=== PATIENT | male | born 1960 | race Caucasian/White ===

== ENCOUNTER 2018-09-07 09:06 | Inpatient (IN) | payer MEDICAID, OTHER ==
[2018-09-07] MEDS ORDERED: Cyclobenzaprine 10 MG Tab PO PRN (11:52)
[2018-09-07] MEDS: Gabapentin 300 MG Cap PO SCH ×2 (12:19→20:13)
[2018-09-07] MEDS: HYDROmorphone 2 MG Tab PO PRN ×3 (12:20→20:14)
[2018-09-07] MEDS ORDERED: Dextran 70/Hypromellose/PF Ophth Soln 0.9 ML UD EYEBOTH PRN (12:30)
[2018-09-07] MEDS: Acetaminophen/HYDROcodone 325-10 MG Tab PO SCH ×2 (12:32→18:09)
--- NOTE | 2018-09-07 15:31 | PCM.HP ---
H&P History of Present Illness - General Date of Service: 09/07/18 Admit Problem/Dx: Admission Diagnosis/Problem Admission Diagnosis/Problem Total replacement of hip Source of Information: Patient History Limitations: Reports: No Limitations - History of Present Illness Initial Comments - Free Text/Narative: 58-year-old male admitted to [facility] 3 days status post left hip replacement. He has a history of A. Fib with RVR, obesity, diabetes type 2, and diastolic heart failure. He has a history of osteoarthritis in the left hip with chronic pain for several years. He had been on chronic narcotics but got off after a back surgery but restarted due to the significant hip pain. Previously had a right hip replacement in 2014. Pain control has been difficult causing limited mobility. After changing PRN medication to Dilaudid pain control was better. At discharge patient ambulated 60 feet with a front-wheeled walker.Post- operatively patient was hypotensive, metoprolol was held. He became tachycardic and placed back on metoprolol. Patient denies palpitations. First dressing change was today, there is a small blistered area on the proximal portion of the incision, no drainage. He has not had a bowel movement since admission. He denies cramping or constipation. Onset of Symptoms: Reports: Gradual Duration of Symptoms: Reports: Chronic Location: Reports: Lower Extremity, Left Quality: Reports: Ache Severity: Moderate Improves with: Reports: Medication, Movement, Rest Worsens with: Reports: Immobilization Associated Symptoms: Reports: No Other Symptoms Left Hip Pain Score (Numeric/FACES): 7 - Related Data Allergies/Adverse Reactions: Allergies Allergy/AdvReac Type Severity Reaction Status Date / Time aspartame Allergy Swelling Verified 06/18/15 06:22 hydrochlorothiazide Allergy Itching Verified 06/18/15 06:22 tramadol Allergy Hives Verified 09/07/18 15:34 propoxyphene HCl AdvReac Bleeding Verified 06/18/15 06:22 [From Darvon] simvastatin AdvReac Muscle Verified 06/18/15 06:22 Aches Home Medications: Home Meds Cyanocobalamin (Vitamin B12) [Vitamin B12] 1,000 mcg SL DAILY 06/06/14 [History] Cyclobenzaprine [Flexeril] 10 mg PO TID PRN 06/06/14 [History] metFORMIN [Glucophage] 1,000 mg PO DAILY 06/06/14 [History] Calcium Carbonate 1 tab PO DAILY 06/25/14 [History] Cranberry 1 cap PO DAILY 06/25/14 [History] Enalapril [Vasotec] 10 mg PO DAILY 06/25/14 [History] Furosemide [Lasix] 1 tab PO BID 06/25/14 [History] Levothyroxine Sodium [Synthroid] 25 mcg PO ACBRK 06/25/14 [History] Metoprolol Tartrate [Lopressor] 100 mg PO BID 06/25/14 [History] Multivit-Min/FA/Lycopene/Lut [Centrum Silver] 1 tab PO DAILY 06/25/14 [History] Pantoprazole [Protonix] 40 mg PO DAILY 06/25/14 [History] atorvaSTATin [Lipitor] 1 tab PO DAILY 06/25/14 [History] Aspirin [Halfprin] 162 mg PO DAILY 06/15/15 [History] Gabapentin [Neurontin] 300 mg PO TID 06/15/15 [History] Hydrocodone/Acetaminophen [Hydrocodon-Acetaminophen 5-325] 10 - 325 each PO Q6H 06/15/15 [History] Allopurinol [Zyloprim] 300 mg PO DAILY 09/07/18 [History] Apixaban [Eliquis] 2.5 mg PO BID 09/07/18 [History] Dextran 70/Hypromellose [Artificial Tears] 1 drop EYEBOTH Q4HR PRN 09/07/18 [ History] HYDROmorphone [Dilaudid] 2 mg PO Q4H PRN 09/07/18 [History] HYDROmorphone [Dilaudid] 4 mg PO Q4H PRN 09/07/18 [History] Liraglutide [Victoza 3-Zev] 1.8 mg SUBCUT DAILY 09/07/18 [History] Magnesium Oxide 400 mg PO DAILY 09/07/18 [History] Potassium Phosphate,Monobasic [K-Phos Original] 500 mg PO DAILY 09/07/18 [ History] Past Medical History - Past Health History Medical/Surgical History: Denies Medical/Surgical History Cardiovascular History: Reports: Afib, Heart Failure, Heart Murmur Other Cardiovascular History: Hypertryglyceridemia. Afib with RVR Respiratory History: Reports: Sleep Apnea Other Genitourinary History: Overactive bladder Musculoskeletal History: Reports: Amputation, Gout, Osteoarthritis Other Musculoskeletal History: Spinal stenosis. Acromioclavicular joint injury. Right hip pain. heterotropic ossification of bone. Achilles tendon rupture. Left hip replacement. Enthesopathy of hip region Other Neuro History: Trigeminal neuralgia Endocrine/Metabolic History: Reports: Diabetes, Type II Other Hematologic History: B12 deficiency - Infectious Disease History Infectious Disease History: Reports: Chicken Pox - Past Surgical History GI Surgical History: Reports: Appendectomy Musculoskeletal Surgical History: Reports: Hip Replacement Other Musculoskeletal Surgeries/Procedures:: Toe amputation. finger amputation traumatic. Back surgery. Carpal tunnel syndrome Social & Family History - Family History Endocrine/Metabolic: Reports: Diabetes, type II - Tobacco Use Smoking Status *Q: Never Smoker Second Hand Smoke Exposure: No - Caffeine Use Caffeine Use: Reports: Coffee, Soda - Recreational Drug Use Recreational Drug Use: No H&P Review of Systems - Review of Systems: Review Of Systems: See Below General: Reports: No Symptoms HEENT: Reports: Glasses Pulmonary: Reports: No Symptoms Cardiovascular: Reports: No Symptoms Gastrointestinal: Reports: No Symptoms Genitourinary: Reports: No Symptoms Musculoskeletal: Reports: Joint Pain Skin: Reports: Other (left hip incision) Psychiatric: Reports: No Symptoms Neurological: Reports: No Symptoms Hematologic/Lymphatic: Reports: No Symptoms Immunologic: Reports: No Symptoms Exam - Exam Exam: See Below - Vital Signs Vital Signs: Last Vital Signs Temp 97.5 F 09/07/18 11:13 Pulse 83 09/07/18 11:13 Resp 18 09/07/18 11:13 BP 129/59 L 09/07/18 11:13 Pulse Ox 97 09/07/18 11:13 Weight: 129.274 kg - Exam General: Alert, Oriented HEENT: Conjunctiva Clear, Mucosa Moist & [place], Normal Nasal Septum, Pupils Equal , Pupils Reactive, Glasses Neck: Supple, Trachea Midline Lungs: Clear to Auscultation, Normal Respiratory Effort Cardiovascular: Regular Rate, Regular Rhythm, Diastolic Murmur GI/Abdominal Exam: Normal Bowel Sounds, Soft, Non-Tender, No Distention, No Mass (Male) Exam: Normal Inspection Rectal (Males) Exam: Normal Exam Back Exam: Normal Inspection Extremities: No Pedal Edema, Normal Capillary Refill, Limited Range of Motion, Other (left hip incisional pain, decreased range of motion) Peripheral Pulses: 2+: Radial (L), Radial (R), Posterior Tibial (L), Posterior Tibial (R), Dorsalis Pedis (L), Dorsalis Pedis (R) Skin: Warm, Dry, Incision Neurological: Cranial Nerves Intact, Reflexes Equal Bilateral, Sensation Intact , Abnormal Gait Neuro Extensive - Mental Status: Alert, Oriented x3, Normal Mood/Affect, Normal Cognition, Memory Intact Neuro Extensive - Motor, Sensory, Reflexes: CN II-XII Intact, Normal Reflexes Psychiatric: Alert, Normal Affect, Normal Mood *Q Meaningful Use (ADM) - VTE Risk Assess *Q Each Risk Factor Represents 1 Point: Age 41 - 59 years, Obesity ( BMI > 25 kg/m2 ) Total Score 1 Point Risk Factors: 2 Each Risk Factor Represents 2 Points: None Total Score 2 Point Risk Factors: 0 Each Risk Factor Represents 3 Points: None Total Score 3 Point Risk Factors: 0 Each Risk Factor Represents 5 Points: Elective Major Lower Extremity Arthroplasty Total Score 5 Point Risk Factors: 5 Venous Thromboembolism Risk Factor Score *Q: 7 - Problem List (1) Hip joint replacement status SNOMED Code(s): 636950572, 850779135, 492675514, 344374711 ICD Code: Z96.649 - PRESENCE OF UNSPECIFIED ARTIFICIAL HIP JOINT Status: Acute Priority: Medium Current Visit: Yes Qualifiers: Laterality: left Qualified Code(s): Z96.642 - Presence of left artificial hip joint (2) Diabetes SNOMED Code(s): 00024224 ICD Code: E11.9 - TYPE 2 DIABETES MELLITUS WITHOUT COMPLICATIONS Status: Chronic Priority: Low Current Visit: Yes Qualifiers: Diabetes mellitus type: type 2 Diabetes mellitus nursing home insulin use: with nursing home use Diabetes mellitus complication status: with unspecified complications Qualified Code(s): E11.8 - Type 2 diabetes mellitus with unspecified complications; Z79.4 - care home (current) use of insulin (3) Osteoarthritis SNOMED Code(s): 409907174 ICD Code: M19.90 - UNSPECIFIED OSTEOARTHRITIS, UNSPECIFIED SITE Status: Chronic Priority: Low Current Visit: Yes Onset Date: Unknown Qualifiers: Osteoarthritis location: multiple joints Osteoarthritis type: primary Qualified Code(s): M15.0 - Primary generalized (osteo)arthritis (4) Hypothyroidism SNOMED Code(s): 14540017 ICD Code: E03.9 - HYPOTHYROIDISM, UNSPECIFIED Status: Chronic Priority: Low Current Visit: Yes Onset Date: Unknown Qualifiers: Hypothyroidism type: unspecified Qualified Code(s): E03.9 - Hypothyroidism , unspecified (5) Obesity SNOMED Code(s): 462634842, 667624862 ICD Code: E66.9 - OBESITY, UNSPECIFIED Status: Chronic Priority: Low Current Visit: Yes Onset Date: Unknown Qualifiers: Obesity type: unspecified obesity type Obesity classification: adult class 3 (BMI >= 40) Body mass index: BMI 40.0-44.9 (6) Heart murmur SNOMED Code(s): 55588618 ICD Code: R01.1 - CARDIAC MURMUR, UNSPECIFIED Status: Chronic Priority: Low Current Visit: Yes Onset Date: Unknown (7) Lumbar stenosis SNOMED Code(s): 81774636 ICD Code: M48.061 - SPINAL STENOSIS, LUMBAR REGION WITHOUT NEUROGENIC SANDI Status: Chronic Priority: Low Current Visit: Yes Onset Date: Unknown Qualifiers: Neurogenic claudication status: with neurogenic claudication Qualified Code (s): M48.062 - Spinal stenosis, lumbar region with neurogenic claudication (8) Diastolic CHF SNOMED Code(s): 806412124, 873870710 ICD Code: I50.30 - UNSPECIFIED DIASTOLIC (CONGESTIVE) HEART FAILURE Status : Chronic Priority: Low Current Visit: Yes Onset Date: Unknown Qualifiers: Heart failure chronicity: chronic Qualified Code(s): I50.32 - Chronic diastolic (congestive) heart failure (9) GERD (gastroesophageal reflux disease) SNOMED Code(s): 904194072 ICD Code: K21.9 - GASTRO-ESOPHAGEAL REFLUX DISEASE WITHOUT ESOPHAGITIS Status: Chronic Priority: Low Current Visit: Yes Onset Date: Unknown Qualifiers: Esophagitis presence: esophagitis presence not specified Qualified Code(s) : K21.9 - Gastro-esophageal reflux disease without esophagitis (10) Sleep apnea SNOMED Code(s): 00430568 ICD Code: G47.30 - SLEEP APNEA, UNSPECIFIED Status: Chronic Priority: Low Current Visit: Yes Onset Date: Unknown Qualifiers: Sleep apnea type: obstructive Qualified Code(s): G47.33 - Obstructive sleep apnea (adult) (pediatric) (11) Hypertension SNOMED Code(s): 03217378 ICD Code: I10 - ESSENTIAL (PRIMARY) HYPERTENSION Status: Chronic Priority : Low Current Visit: Yes Onset Date: Unknown Qualifiers: Hypertension type: essential hypertension Qualified Code(s): I10 - Essential (primary) hypertension (12) Hypertriglyceridemia SNOMED Code(s): 597434318 ICD Code: E78.1 - PURE HYPERGLYCERIDEMIA Status: Chronic Priority: Low Current Visit: Yes Onset Date: Unknown Problem List Initiated/Reviewed/Updated: Yes Orders Last 24hrs: Active Orders 24 hr Category Date Time Status Admission Status [Patient Status] [ADT] Routine ADT 09/07/18 10:58 Active Accu Check [Blood Glucose Check, Bedside] [RC] 07,17 Care 09/07/18 11:55 Active Antiembolic Devices [RC] , Care 09/07/18 11:01 Active Communication Order [RC] , Care 09/07/18 11:03 Active Communication Order [RC] 09 Care 09/12/18 09:00 Active May Shower [RC] Tu@08 Care 09/07/18 11:02 Active OT Evaluation and Treatment [CONS] Routine Cons 09/07/18 11:01 Active PT Evaluation and Treatment [CONS] Routine Cons 09/07/18 11:01 Active ADA Diabetic [[place] [employer] Diet] [DIET Diet 09/07/18 Lunch Active ] Acetaminophen/HYDROcodone [Benedict 325-10 MG] Med 09/07/18 12:00 Active 1 tab PO Q6H Allopurinol [Zyloprim] Med 09/08/18 08:00 Active 300 mg PO DAILY Apixaban [Eliquis] Med 09/07/18 20:00 Active 2.5 mg PO BID Aspirin [Halfprin] Med 09/08/18 08:00 Active 162 mg PO DAILY Calcium Carbonate/Vitamin D3 [Calcium Carbonate/Vitamin Med 09/08/18 08:00 Active D 1250 MG-200 Unit] 1 tab PO DAILY Cranberry Med 09/08/18 08:00 Active 500 mg PO DAILY Cyanocobalamin (Vitamin B12) [Vitamin B12] Med 09/08/18 08:00 Active 1,000 mcg SL DAILY Cyclobenzaprine [Flexeril] Med 09/07/18 11:52 Active 10 mg PO TID PRN Dextran 70/Hypromellose/PF [Tears Naturale Free] Med 09/07/18 12:30 Active 0 each EYEBOTH Q4H PRN Docusate Sodium/Sennosides [Senna Plus] Med 09/07/18 13:00 Active 1 tab PO BID Enalapril [Vasotec] Med 09/08/18 08:00 Active 10 mg PO DAILY Furosemide [Lasix] Med 09/07/18 16:00 Active 40 mg PO BIDDIURETIC Gabapentin [Neurontin] Med 09/07/18 12:00 Active 300 mg PO TID HYDROmorphone [Dilaudid] Med 09/07/18 11:52 Active 2 mg PO Q4H PRN HYDROmorphone [Dilaudid] Med 09/07/18 11:52 Active 4 mg PO Q4H PRN Levothyroxine Med 09/08/18 07:00 Active 25 mcg PO ACBRK Liraglutide [Victoza] Med 09/08/18 08:00 Pending 1.8 mg SUBCUT DAILY Magnesium Oxide Med 09/08/18 08:00 Active 400 mg PO DAILY Metoprolol Tartrate [Lopressor] Med 09/07/18 20:00 Active 100 mg PO BID Multivitamins w-Iron/Ca/FA/Min [Thera M Plus] Med 09/08/18 08:00 Active 1 tab PO DAILY Pantoprazole [ProTONIX] Med 09/08/18 08:00 Active 40 mg PO DAILY Potassium Phosphate,Monobasic [K-Phos Original] Med 09/08/18 08:00 Pending 500 mg PO DAILY atorvaSTATin [Lipitor] Med 09/08/18 08:00 Active 40 mg PO DAILY metFORMIN [Glucophage] Med 09/08/18 08:00 Active 1,000 mg PO DAILY MELISSA Hose [Antiembolic Hose] [OM.PC] Routine Oth 09/07/18 11:01 Ordered Weight bearing status [OM.PC] Routine Oth 09/07/18 11:01 Active Code Status [Resuscitation Status] Routine Resus Stat 09/07/18 11:02 Ordered Medication Orders Hydrocodone Bitart/Acetaminophen (Benedict 325-10 Mg) 1 tab PO Q6H TOYA Stop: 09/09/18 23:59 Last Admin: 09/07/18 12:32 Dose: 1 tab Allopurinol (Zyloprim) 300 mg PO DAILY TOYA Apixaban (Eliquis) 2.5 mg PO BID TOYA Artificial Tears (Tears Naturale Free) 0 each EYEBOTH Q4H PRN PRN Reason: dry eyes Aspirin (Halfprin) 162 mg PO DAILY [facility] Atorvastatin Calcium (Lipitor) 40 mg PO DAILY [facility] Calcium Carbonate (Calcium Carbonate/Vitamin D 1250 Mg-200 Unit) 1 tab PO DAILY [facility] Cranberry (Cranberry) 500 mg PO DAILY [facility] Cyanocobalamin (Vitamin B12) 1,000 mcg SL DAILY [facility] Cyclobenzaprine HCl (Flexeril) 10 mg PO TID PRN PRN Reason: muscle spasms Enalapril Maleate (Vasotec) 10 mg PO DAILY [facility] Furosemide (Lasix) 40 mg PO BIDDIURETIC [facility] Gabapentin (Neurontin) 300 mg PO TID [facility] Last Admin: 09/07/18 12:19 Dose: 300 mg Hydromorphone HCl (Dilaudid) 2 mg PO Q4H PRN PRN Reason: Pain (moderate 4-6) Hydromorphone HCl (Dilaudid) 4 mg PO Q4H PRN PRN Reason: Pain (severe 7-10) Last Admin: 09/07/18 12:20 Dose: 4 mg Levothyroxine Sodium (Levothyroxine) 25 mcg PO ACBRK [facility] Magnesium Oxide (Magnesium Oxide) 400 mg PO DAILY [facility] Metformin HCl (Glucophage) 1,000 mg PO DAILY [facility] Metoprolol Tartrate (Lopressor) 100 mg PO BID [facility] Multivitamins/Minerals (Thera M Plus) 1 tab PO DAILY [facility] Non-Formulary Medication (Liraglutide [Victoza]) 1.8 mg SUBCUT DAILY [facility] Non-Formulary Medication (Potassium Phosphate,Monobasic [K-Phos Original]) 500 mg PO DAILY [facility] Pantoprazole Sodium (Protonix) 40 mg PO DAILY [facility] Senna/Docusate Sodium (Senna Plus) 1 tab PO BID [facility] Assessment/Plan Comment:: 1. PT/OT ordered 2. Added Senna-S to prevent constipation while on narcotics 3. On Eliquis for DVT prophylaxis 4. Once daily accu-checks 5. Schedule pain medications for 48 hours. 6. Continue home meds likely home next week may do labs prior to d/c 7. MELISSA daley
[2018-09-07] MEDS: Furosemide 40 MG Tab PO SCH (16:10)
[2018-09-07] MEDS: Metoprolol Tartrate 50 MG Tab PO SCH (20:12)
[2018-09-07] MEDS: Apixaban 2.5 MG Tab PO SCH (20:13)
[2018-09-08] MEDS: Acetaminophen/HYDROcodone 325-10 MG Tab PO SCH ×4 (00:05→17:12)
[2018-09-08] MEDS: HYDROmorphone 2 MG Tab PO PRN ×4 (04:39→20:01)
[2018-09-08] MEDS: Levothyroxine 25 MCG Tab PO SCH (06:01)
[2018-09-08] MEDS: Apixaban 2.5 MG Tab PO SCH ×2 (08:03→20:00)
[2018-09-08] MEDS: Magnesium Oxide 400 MG Tab PO SCH (08:03)
[2018-09-08] MEDS: Metoprolol Tartrate 50 MG Tab PO SCH ×2 (08:03→20:02)
[2018-09-08] MEDS: atorvaSTATin 40 MG Tab PO SCH (08:03)
[2018-09-08] MEDS: Calcium Carbonate/Vitamin D3 1250 MG-200 Unit Tab PO SCH (08:05)
[2018-09-08] MEDS: metFORMIN 500 MG Tab PO SCH (08:05)
[2018-09-08] MEDS: Cranberry 500 MG Cap PO SCH (08:05)
[2018-09-08] MEDS: Multivitamins with Iron/Calcium/Folic Acid/Minerals Tab PO SCH (08:06)
[2018-09-08] MEDS: Aspirin 81 MG Tab.EC PO SCH (08:06)
[2018-09-08] MEDS: Allopurinol 300 MG Tab PO SCH (08:06)
[2018-09-08] MEDS: Gabapentin 300 MG Cap PO SCH ×3 (08:06→20:00)
[2018-09-08] MEDS: Pantoprazole 40 MG Tab.CR PO SCH (08:06)
[2018-09-08] MEDS: POTASSIUM GLUCONATE 550 MG PO SCH (08:07)
[2018-09-08] MEDS: Furosemide 40 MG Tab PO SCH ×2 (08:07→17:12)
[2018-09-08] MEDS: Cyanocobalamin (Vitamin B12) 1,000 MCG Tab SL SCH (08:07)
[2018-09-08] MEDS: VICTOZA 18 MG/3 ML SUBCUT SCH (08:08)
[2018-09-09] MEDS: Acetaminophen/HYDROcodone 325-10 MG Tab PO SCH ×4 (00:07→17:47)
[2018-09-09] MEDS: HYDROmorphone 2 MG Tab PO PRN ×4 (02:56→20:28)
[2018-09-09] MEDS: Levothyroxine 25 MCG Tab PO SCH (06:09)
[2018-09-09] MEDS: Cyanocobalamin (Vitamin B12) 1,000 MCG Tab SL SCH (08:37)
[2018-09-09] MEDS: Metoprolol Tartrate 50 MG Tab PO SCH ×2 (08:38→20:23)
[2018-09-09] MEDS: Aspirin 81 MG Tab.EC PO SCH (08:38)
[2018-09-09] MEDS: Cranberry 500 MG Cap PO SCH (08:39)
[2018-09-09] MEDS: Furosemide 40 MG Tab PO SCH ×2 (08:39→15:37)
[2018-09-09] MEDS: Allopurinol 300 MG Tab PO SCH (08:39)
[2018-09-09] MEDS: Pantoprazole 40 MG Tab.CR PO SCH (08:39)
[2018-09-09] MEDS: Gabapentin 300 MG Cap PO SCH ×3 (08:39→20:24)
[2018-09-09] MEDS: Calcium Carbonate/Vitamin D3 1250 MG-200 Unit Tab PO SCH (08:39)
[2018-09-09] MEDS: Magnesium Oxide 400 MG Tab PO SCH (08:39)
[2018-09-09] MEDS: Multivitamins with Iron/Calcium/Folic Acid/Minerals Tab PO SCH (08:40)
[2018-09-09] MEDS: metFORMIN 500 MG Tab PO SCH (08:40)
[2018-09-09] MEDS: atorvaSTATin 40 MG Tab PO SCH (08:40)
[2018-09-09] MEDS: Apixaban 2.5 MG Tab PO SCH ×2 (08:40→20:23)
[2018-09-09] MEDS: POTASSIUM GLUCONATE 550 MG PO SCH (08:41)
[2018-09-09] MEDS: VICTOZA 18 MG/3 ML SUBCUT SCH (08:41)
[2018-09-10] MEDS: Acetaminophen/HYDROcodone 325-10 MG Tab PO SCH ×4 (00:24→18:13)
[2018-09-10] MEDS: HYDROmorphone 2 MG Tab PO PRN ×4 (02:52→21:06)
[2018-09-10] MEDS: Levothyroxine 25 MCG Tab PO SCH (06:01)
[2018-09-10] MEDS: Furosemide 40 MG Tab PO SCH ×2 (08:00→15:19)
[2018-09-10] MEDS: Gabapentin 300 MG Cap PO SCH ×3 (08:00→19:30)
[2018-09-10] MEDS: Allopurinol 300 MG Tab PO SCH (08:00)
[2018-09-10] MEDS: Calcium Carbonate/Vitamin D3 1250 MG-200 Unit Tab PO SCH (08:00)
[2018-09-10] MEDS: Aspirin 81 MG Tab.EC PO SCH (08:00)
[2018-09-10] MEDS: Cyanocobalamin (Vitamin B12) 1,000 MCG Tab SL SCH (08:00)
[2018-09-10] MEDS: Apixaban 2.5 MG Tab PO SCH ×2 (08:00→19:30)
[2018-09-10] MEDS: Multivitamins with Iron/Calcium/Folic Acid/Minerals Tab PO SCH (08:00)
[2018-09-10] MEDS: Cranberry 500 MG Cap PO SCH (08:00)
[2018-09-10] MEDS: Magnesium Oxide 400 MG Tab PO SCH (08:00)
[2018-09-10] MEDS: atorvaSTATin 40 MG Tab PO SCH (08:00)
[2018-09-10] MEDS: metFORMIN 500 MG Tab PO SCH (08:01)
[2018-09-10] MEDS: Metoprolol Tartrate 50 MG Tab PO SCH ×2 (08:01→19:30)
[2018-09-10] MEDS: Pantoprazole 40 MG Tab.CR PO SCH (08:01)
[2018-09-10] MEDS: POTASSIUM GLUCONATE 550 MG PO SCH (08:02)
[2018-09-10] MEDS: VICTOZA 18 MG/3 ML SUBCUT SCH (08:02)
[2018-09-11] MEDS: Acetaminophen/HYDROcodone 325-10 MG Tab PO SCH ×4 (00:06→18:11)
[2018-09-11] MEDS: HYDROmorphone 2 MG Tab PO PRN ×4 (03:36→22:00)
[2018-09-11] MEDS: Levothyroxine 25 MCG Tab PO SCH (06:29)
[2018-09-11] MEDS: VICTOZA 18 MG/3 ML SUBCUT SCH (08:04)
[2018-09-11] MEDS: Metoprolol Tartrate 50 MG Tab PO SCH ×2 (08:05→19:35)
[2018-09-11] MEDS: POTASSIUM GLUCONATE 550 MG PO SCH (08:05)
[2018-09-11] MEDS: Gabapentin 300 MG Cap PO SCH ×3 (08:06→19:35)
[2018-09-11] MEDS: Cranberry 500 MG Cap PO SCH (08:06)
[2018-09-11] MEDS: Allopurinol 300 MG Tab PO SCH (08:06)
[2018-09-11] MEDS: Cyanocobalamin (Vitamin B12) 1,000 MCG Tab SL SCH (08:06)
[2018-09-11] MEDS: Multivitamins with Iron/Calcium/Folic Acid/Minerals Tab PO SCH (08:06)
[2018-09-11] MEDS: Furosemide 40 MG Tab PO SCH ×2 (08:06→16:08)
[2018-09-11] MEDS: metFORMIN 500 MG Tab PO SCH (08:06)
[2018-09-11] MEDS: atorvaSTATin 40 MG Tab PO SCH (08:06)
[2018-09-11] MEDS: Aspirin 81 MG Tab.EC PO SCH (08:06)
[2018-09-11] MEDS: Calcium Carbonate/Vitamin D3 1250 MG-200 Unit Tab PO SCH (08:06)
[2018-09-11] MEDS: Pantoprazole 40 MG Tab.CR PO SCH (08:07)
[2018-09-11] MEDS: Apixaban 2.5 MG Tab PO SCH ×2 (08:07→19:35)
[2018-09-11] MEDS: Magnesium Oxide 400 MG Tab PO SCH (08:07)
[2018-09-12] MEDS: Acetaminophen/HYDROcodone 325-10 MG Tab PO SCH ×4 (00:25→17:54)
[2018-09-12] MEDS: Levothyroxine 25 MCG Tab PO SCH (06:19)
[2018-09-12] MEDS: Magnesium Oxide 400 MG Tab PO SCH (07:36)
[2018-09-12] MEDS: Cyanocobalamin (Vitamin B12) 1,000 MCG Tab SL SCH (07:36)
[2018-09-12] MEDS: Calcium Carbonate/Vitamin D3 1250 MG-200 Unit Tab PO SCH (07:36)
[2018-09-12] MEDS: Aspirin 81 MG Tab.EC PO SCH (07:37)
[2018-09-12] MEDS: Metoprolol Tartrate 50 MG Tab PO SCH ×2 (07:37→19:47)
[2018-09-12] MEDS: Multivitamins with Iron/Calcium/Folic Acid/Minerals Tab PO SCH (07:39)
[2018-09-12] MEDS: Pantoprazole 40 MG Tab.CR PO SCH (07:39)
[2018-09-12] MEDS: Cranberry 500 MG Cap PO SCH (07:39)
[2018-09-12] MEDS: Allopurinol 300 MG Tab PO SCH (07:39)
[2018-09-12] MEDS: metFORMIN 500 MG Tab PO SCH (07:39)
[2018-09-12] MEDS: atorvaSTATin 40 MG Tab PO SCH (07:40)
[2018-09-12] MEDS: Gabapentin 300 MG Cap PO SCH ×3 (07:40→19:47)
[2018-09-12] MEDS: Apixaban 2.5 MG Tab PO SCH ×2 (07:40→19:47)
[2018-09-12] MEDS: Furosemide 40 MG Tab PO SCH ×2 (07:40→17:05)
[2018-09-12] MEDS: VICTOZA 18 MG/3 ML SUBCUT SCH (08:51)
[2018-09-12] MEDS: POTASSIUM GLUCONATE 550 MG PO SCH (08:54)
[2018-09-12] MEDS: HYDROmorphone 2 MG Tab PO PRN (10:10)
[2018-09-13] MEDS: Acetaminophen/HYDROcodone 325-10 MG Tab PO SCH ×3 (00:17→11:58)
[2018-09-13] MEDS: HYDROmorphone 2 MG Tab PO PRN (03:47)
[2018-09-13 06:35] VITALS: BP 113/64
[2018-09-13] MEDS: Levothyroxine 25 MCG Tab PO SCH (06:39)
[2018-09-13] MEDS: Metoprolol Tartrate 50 MG Tab PO SCH (07:57)
[2018-09-13] MEDS: metFORMIN 500 MG Tab PO SCH (07:57)
[2018-09-13] MEDS: Calcium Carbonate/Vitamin D3 1250 MG-200 Unit Tab PO SCH (07:57)
[2018-09-13] MEDS: Apixaban 2.5 MG Tab PO SCH (07:57)
[2018-09-13] MEDS: Allopurinol 300 MG Tab PO SCH (07:57)
[2018-09-13] MEDS: Multivitamins with Iron/Calcium/Folic Acid/Minerals Tab PO SCH (07:57)
[2018-09-13] MEDS: atorvaSTATin 40 MG Tab PO SCH (07:58)
[2018-09-13] MEDS: Aspirin 81 MG Tab.EC PO SCH (07:58)
[2018-09-13] MEDS: Gabapentin 300 MG Cap PO SCH ×2 (07:58→11:58)
[2018-09-13] MEDS: Cyanocobalamin (Vitamin B12) 1,000 MCG Tab SL SCH (07:58)
[2018-09-13] MEDS: Furosemide 40 MG Tab PO SCH ×2 (07:58→15:44)
[2018-09-13] MEDS: Pantoprazole 40 MG Tab.CR PO SCH (07:58)
[2018-09-13] MEDS: Cranberry 500 MG Cap PO SCH (07:59)
[2018-09-13] MEDS: Magnesium Oxide 400 MG Tab PO SCH (07:59)
[2018-09-13] MEDS: POTASSIUM GLUCONATE 550 MG PO SCH (07:59)
[2018-09-13] MEDS: VICTOZA 18 MG/3 ML SUBCUT SCH (07:59)
--- NOTE | 2018-09-13 23:43 | DISCH ---
PRIMARY DISCHARGE DIAGNOSES: 1. A left hip replacement due to painful osteoarthritis. 2. Morbid obesity. 3. Type 2 diabetes with well-controlled blood sugars. 4. History of gout. 5. Hypertriglyceridemia. 6. Hypothyroidism. 7. Previous back surgeries. 8. Essential hypertension. 9. Previous paroxysmal atrial fibrillation. 10.Previous foot amputations, but prior to him getting diabetes. 11.Overactive bladder. REASON FOR ADMISSION: On the date of admission, this 58-year-old male underwent a planned left hip replacement on the by Dr. Saul. He had significant postoperative pain and therefore was having some difficulty mobilizing. He did have some tachycardia due to holding his metoprolol for hypotension. However, he did not have any reported AFib, and that resolved. He was placed on scheduled hydrocodone 10 mg 4 times a day as he had previously taken hydrocodone off and on for the last couple of years due to his chronic back problems and also having right hip surgery in the past. He was getting p.r.n. Dilaudid for breakthrough pain and he did use a dose during the night. Otherwise, was only using this 1-2 times a day, and discussion had already been made with the patient that we would send him home on only hydrocodone. He was also placed on Eliquis to complete a full month course to prevent DVTs. He had a new script updated for the next 25 days of treatment and will pick that up at the pharmacy. He had no calf swelling or pain. He had no trouble with breathing. He was having bowel movements. He was up. He was working with therapies and doing quite well during his stay. No lab other than blood sugars was done here as his overall condition was quite stable. PHYSICAL EXAMINATION: Vital Signs: He did have discharging vitals of a temperature 97.5, pulse 93, blood pressure 113/64, respiratory rate 18, O2 of 95% on room air. General: He was in no acute distress. Heart: Regular rate and rhythm. S1, S2. He has a murmur. Lungs: Sounds are clear to auscultation bilaterally without crackles or wheezes. Extremities: Warm and dry. No edema. The left hip was examined. There was no hematoma appreciated. He did have some tenderness over the incision, but no redness, warmth, or drainage. The bandaging was just changed yesterday per Nursing. Otherwise, his skin did not show any abnormal rashes. Mental Status: Alert and orientated x3. DISCHARGE PLANS AND INSTRUCTIONS: He will follow up with Ortho on Monday as previously scheduled. He will be on scheduled hydrocodone 3 times a day and p.r.n. until then. He was given 40 tablets. Further refills can come through [facility]. If he is going to be on it longer than that, I can always fill. Anticipate he may need more than just a couple of weeks due to his history of using opioids. He has always been able to wean off in the past. He will then see Dr. Saul on 10/15/2018 and me on 10/29/2018. No lab is due unless he has other symptoms. His hemoglobin was 10.4 on the . His electrolytes were checked on the and looked okay. He is scheduled for outpatient physical therapy as well. MKA: 09/13/2018 16:38:27 MODL: 09/13/2018 23:34:48 /[id number]
== END 2018-09-13 17:30 | disposition home or self-care (01) | DRG 560 ==
LOC: VM.MS 11:04
PROVIDERS: ADMIT Internal Medicine; ATTEND Internal Medicine
PROC: F07L6ZZ Therapeutic Exercise Treatment of Musculoskeletal System - Lower Back / Lower Extremity (ICD-10-PCS; principal; 2018-09-07)
PROC: F07Z5ZZ Bed Mobility Treatment (ICD-10-PCS; 2018-09-07)
PROC: F07Z9ZZ Gait Training/Functional Ambulation Treatment (ICD-10-PCS; 2018-09-07)
PROC: F08Z4ZZ Home Management Treatment (ICD-10-PCS; 2018-09-10)
PROC: F08Z2ZZ Grooming/Personal Hygiene Treatment (ICD-10-PCS; 2018-09-10)
DX: Z47.1 Aftercare following joint replacement surgery (principal); I50.32 Chronic diastolic (congestive) heart failure; E66.01 Morbid (severe) obesity due to excess calories; E11.9 Type 2 diabetes mellitus without complications; M10.9 Gout, unspecified; E78.1 Pure hyperglyceridemia; E03.9 Hypothyroidism, unspecified; I48.0 Paroxysmal atrial fibrillation; I10 Essential (primary) hypertension; N32.81 Overactive bladder; I11.0 Hypertensive heart disease with heart failure; E53.8 Deficiency of other specified B group vitamins; R01.1 Cardiac murmur, unspecified; M48.061 Spinal stenosis, lumbar region without neurogenic claudication; K21.9 Gastro-esophageal reflux disease without esophagitis; G47.33 Obstructive sleep apnea (adult) (pediatric); Z98.890 Other specified postprocedural states; Z96.643 Presence of artificial hip joint, bilateral; Z79.82 Long term (current) use of aspirin; Z79.899 Other long term (current) drug therapy; Z90.49 Acquired absence of other specified parts of digestive tract; Z89.429 Acquired absence of other toe(s), unspecified side; Z89.029 Acquired absence of unspecified finger(s); Z68.39 Body mass index [BMI] 39.0-39.9, adult
CPT/HCPCS: 82962; 97110-GP; 97116-GP; 97162-GP; 97165-GO; 97530-GP; 97535-GO; A9270-GY